=== PATIENT | female | born 1975 | race Caucasian/White ===

== ENCOUNTER 2021-01-17 17:38 | Emergency (ER) | payer MEDICAID ==
[~2021-01-17] VITALS: Ht 162.6 cm; Wt 77.0 kg
[~2021-01-17 17:38] MED LIST: NITR-65 PO; ONDA-42 SL; PNT40TEC PO
[2021-01-17 17:49] VITALS: BP 129/88
--- NOTE | 2021-01-17 17:57 | ED Upper Extremity ---
General Stated Complaint: L ARM HOT/RED Source: patient Exam Limitations: no limitations (HARRIS SHIPLEY APRN) History of Present Illness Date Seen by Provider: Jan 17, 2021 Time Seen by Provider: 17:55 Initial Comments To ER with some redness swelling and burning sensation to the left arm. This began yesterday while at work. 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 She thinks maybe a bee stung her but she did not see a bee. She has some induration and erythema just above the antecubital fossa on the left forearm. No fevers or chills. Onset: just prior to arrival Severity: moderate Pain/Injury Location: left elbow Modifying Factors: Worse With Movement (HARRIS SHIPLEY APRN) Allergies and Home Medications Allergies Coded Allergies: No Known Drug Allergies (Unverified , 06/25/13) Patient Home Medication List Home Medication List Reviewed: Yes (HARRIS SHIPLEY APRN) Clindamycin HCl (Clindamycin HCl) 300 Mg Capsule, 300 MG PO TID Prescribed by: HARRIS SHIPLEY on 01/17/211807 Nitrofurantoin/Nitrofuran Mac (Macrobid) 100 Mg Capsule, 1 EACH PO BID Prescribed by: KECIA HILL on 06/25/131920 Ondansetron Hcl (Zofran Oral Dissolve) 4 Mg Tab, 4 MG SL Q4H Prescribed by: KECIA HILL on 06/25/131920 Pantoprazole Sodium (Protonix) 40 Mg Tablet.dr, 1 TAB PO DAILY Prescribed by: KECIA HILL on 06/25/131920 Prednisone (Prednisone) 20 Mg Tab, 40 MG PO DAILY Prescribed by: HARRIS SHIPLEY on 01/17/211807 Review of Systems Constitutional: see HPI EENTM: see HPI Respiratory: no symptoms reported Cardiovascular: no symptoms reported Genitourinary: no symptoms reported Musculoskeletal: see HPI Skin: no symptoms reported Psychiatric/Neurological: No Symptoms Reported (HARRIS SHIPLEY APRN) Physical Exam Vital Signs Vital Signs - First Documented 01/17/21 17:49 Temp 36.6 Pulse 117 Resp 18 B/P (MAP) 129/88 (102) Pulse Ox 100 O2 Delivery Room Air (MARGARET RODRÍGUEZ MD) Vital Signs Capillary Refill : (HARRIS SHIPLEY APRN) Height, Weight, BMI Height: 5'4" Weight: 160lbs. oz. 72.038456tk; BMI Method: General Appearance: WD/WN, no apparent distress HEENT: PERRL/EOMI, normal ENT inspection Neck: non-tender, full range of motion Respiratory: no respiratory distress, no accessory muscle use Shoulder: normal inspection, non-tender Elbow/Forearm: Left (Just above the left antecubital fossa is a half dollar sized area of induration and swelling surrounded by about 10cm of erythema without induration.) Wrist: Yes normal inspection, Yes non-tender Hand: normal inspection, non-tender Neurologic/Psychiatric: alert, normal mood/affect, oriented x 3 Skin: normal color, warm/dry (HARRIS SHIPLEY APRN) Progress/Results/Core Measures Results/Orders Medications Given in ED Current Medications Medications Dose Ordered Sig/Dixie Route Start Time Stop Time Status Last Admin Dose Admin Prednisone 40 mg ONCE ONCE PO 01/17/21 18:15 01/17/21 18:16 DC 01/17/21 18:16 40 MG (MARGARET RODRÍGUEZ MD) Vital Signs/I&O 01/17/21 17:49 Temp 36.6 Pulse 117 Resp 18 B/P (MAP) 129/88 (102) Pulse Ox 100 O2 Delivery Room Air (MARGARET RODRÍGUEZ MD) Departure Communication (Admissions) Bedside ultrasound reveals no fluid collection or abscess though there is some cobblestoning of the tissues just beneath the area of induration. We will go ahead and give an injection of clindamycin and then oral clindamycin for a few days as well as prednisone. She states that several individuals at her work have been stung by bees though she does not recall being stung. (HARRIS SHIPLEY APRN) Impression Primary Impression: Cellulitis of left arm Disposition: 01 HOME, SELF-CARE Condition: Stable Departure-Patient Inst. Decision time for Depature: 18:06 (HARRIS SHIPLEY APRN) Referrals: [facility] (PCP/Family) Primary Care Physician Patient Instructions: Cellulitis (Skin Infection), Adult (DC) Add. Discharge Instructions: 1. Expect about 48 hours before improvement. Return to ER for any worsening such as fevers or significantly increasing redness. Scripts Prednisone (Prednisone) 20 Mg Tab 40 MG PO DAILY, #6 TAB 0 Refills Prov: HARRIS SHIPLEY APRN 01/17/21 Clindamycin HCl (Clindamycin HCl) 300 Mg Capsule 300 MG PO TID, #21 CAP Prov: HARRIS SHIPLEY APRN 01/17/21 ATTENDING PHYSICIAN NOTE: I was physically present as attending physician in the emergency department during the care of this patient, but I was not directly involved in the decision making or delivery of care for this patient. (MARGARET RODRÍGUEZ MD) HARRIS SHIPLEY APRN Jan 17, 2021 17:57 MARGARET RODRÍGUEZ MD Jan 17, 2021 18:56
[2021-01-17] MEDS ORDERED: CLIN300C12 PO (18:08)
[2021-01-17] MEDS ORDERED: PRD20T PO (18:08)
[2021-01-17] MEDS ORDERED: CLINDAMYCIN 300 MG/2ML (CLEOCIN) VIAL IM SCH (18:15)
[2021-01-17] MEDS ORDERED: predniSONE 20 MG TAB PO ONE (18:15)
== END 2021-01-17 18:35 | disposition home or self-care (01) ==
LOC: EDUNIT# 17:38 → ER 17:40
DX: L03.114 Cellulitis of left upper limb (principal)
CPT/HCPCS: 99284

== ENCOUNTER 2022-01-27 01:36 | Emergency (ER) | payer MEDICAID ==
[~2022-01-27] VITALS: Ht 163 cm; Wt 77.0 kg
[~2022-01-27 01:36] MED LIST changes: +CLIN-144 PO; +PRD20T PO
[2022-01-27 01:48] VITALS: BP 130/81
[2022-01-27] MEDS ORDERED: SULF1TAB38 PO (01:58)
[2022-01-27] MEDS ORDERED: MUPI22OI2 TP (01:58)
--- NOTE | 2022-01-27 01:58 | ED Integumentary General ---
General Chief Complaint: Skin/Wound Problems Stated Complaint: RT ARM ABSCESS-PAINFUL Nursing Triage Note: Pt presents with abscess to R forearm. She reports hx of MRSA. States she got a splinter 4 days ago and now entire arm is swollen Source: patient Exam Limitations: no limitations History of Present Illness Date Seen by Provider: Jan 27, 2022 Time Seen by Provider: 01:45 Initial Comments Patient is a 46-year-old female with history of MRSA who presents with cellulitis and deroofed abscess to ulnar aspect of her right forearm. Patient states she had a splinter days ago that she is and that the area is now red swollen and tender. She denies fever chills nausea vomiting or sweats. No medications or therapies prior to arrival. Timing/Duration: changing over time Severity: mild Location: extremities Possible Cause: other Modifying Factors: improves with other Associated Symptoms: other Allergies and Home Medications Allergies Coded Allergies: No Known Drug Allergies (Unverified , 06/25/13) Patient Home Medication List Home Medication List Reviewed: Yes Clindamycin HCl (Clindamycin HCl) 300 Mg Capsule, 300 MG PO TID Prescribed by: HARRIS SHIPLEY on 01/17/211807 Nitrofurantoin/Nitrofuran Mac (Macrobid) 100 Mg Capsule, 1 EACH PO BID Prescribed by: KECIA HILL on 06/25/131920 Ondansetron Hcl (Zofran Oral Dissolve) 4 Mg Tab, 4 MG SL Q4H Prescribed by: KECIA HILL on 06/25/131920 Pantoprazole Sodium (Protonix) 40 Mg Tablet.dr, 1 TAB PO DAILY Prescribed by: KECIA HILL on 06/25/131920 Prednisone (Prednisone) 20 Mg Tab, 40 MG PO DAILY Prescribed by: HARRIS SHIPLEY on 01/17/211807 Review of Systems Review of Systems Constitutional: see HPI Skin: see HPI Past Jleijko-Mlhaec-Xyvgta Hx Patient Social History Tobacco Use?: No Past Medical History Surgery/Hospitalization HX: SX: R KNEE SCOPE, BLADDER TIED, HYSTERECTOMY Physical Exam Vital Signs Capillary Refill : Less Than 3 Seconds General Appearance: WD/WN, no apparent distress Cardiovascular: regular rate, rhythm Respiratory: lungs clear Neurologic/Psychiatric: alert, normal mood/affect, oriented x 3 Skin: other (Deroofed abscess with small patch of cellulitis over ulnar aspect of right forearm. No fluctuance or active drainage. No identified foreign body.) Progress/Results/Core Measures Results/Orders Blood Pressure Mean: 97 Departure Communication (Admissions) Deroofed abscess with small patch of cellulitis. Pain addressed, wound bandaged. First dose of antibiotics given. Recommendations are continued therapeutic supportive care with PCP follow-up. Return precautions reviewed. Patient verbalizes understanding and agreement discharge instructions prior to departure Impression Primary Impression: Abscess Additional Impression: Cellulitis Disposition: HOME, SELF-CARE Condition: Stable Departure-Patient Inst. Decision time for Depature: 01:56 Referrals: [facility] (PCP/Family) Primary Care Physician Patient Instructions: Boil Add. Discharge Instructions: Please keep cellulitis covered and take newly prescribed medications as directed. May take ibuprofen OTC for pain. Follow-up with your PCP in for reevaluation 2 to 3 days for reevaluation. Return to the ED if new or worsening symptoms. All discharge instructions reviewed with patient and/or family. Voiced understanding. Scripts Mupirocin (Mupirocin) 2 % Oint...g. 22 GM TP TID, #1 EA Prov: AGGIE MONTANO DO 01/27/22 Sulfamethoxazole/Trimethoprim (Bactrim Ds Tablet) 1 Each Tablet 1 EACH PO BID for 20 Days, TAB Prov: AGGIE MONTANO DO 01/27/22 AGGIE MONTANO DO Jan 27, 2022 01:58
[2022-01-27] MEDS ORDERED: IBUPROFEN 600 MG (MOTRIN) TAB PO ONE (02:00)
[2022-01-27] MEDS ORDERED: TRIM/SULFAMETH 160/800 (SEPTRA DS) TAB PO ONE (02:00)
== END 2022-01-27 02:12 | disposition home or self-care (01) ==
LOC: EDUNIT# 01:36 → ER 01:40
DX: L03.113 Cellulitis of right upper limb (principal); L02.413 Cutaneous abscess of right upper limb; Z28.310 Unvaccinated for COVID-19
CPT/HCPCS: 99283

== ENCOUNTER 2022-02-14 22:30 | Emergency (ER) | payer MEDICAID ==
[~2022-02-14 22:30] MED LIST changes: +MUPI22OI2 TP; +SULF1TAB38 PO
[2022-02-15] MEDS ORDERED: TRIM/SULFAMETH 160/800 (SEPTRA DS) TAB PO ONE (00:30)
[2022-02-15] MEDS ORDERED: TETANUS,DIPTH,PERTUSS P/F (BOOSTRIX) 0.5 ML VIAL IM ONE (00:30)
[2022-02-15] MEDS ORDERED: SULF1TAB38 PO (00:32)
--- NOTE | 2022-02-15 00:32 | ED Upper Extremity ---
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; PT ADVISES THAT APPROX 3 WKS AGO SHE NOTICED A SMALL WOUND FORMING IN HER L AC; PT WAS SEEN AT ER AND GIVEN BACTRIM; PT ADVISES THAT SHE FINISHED THE COURSE OF ANTIBIOTICS BUT CONTINUES TO HAVE THE WOUND; PT ATTEMPTED TO PETER THE WOUND HERSELF TONIGHT AND REPORTS THAT SHE WAS ABLE TO GET SOME SANGUINEOUS AND SEROSANGUINEOUS DRAINAGE; PT IS CONERNED THAT INFECTION IS STILL PRESENT Source: patient Exam Limitations: no limitations History of Present Illness Date Seen by Provider: Feb 15, 2022 Time Seen by Provider: 00:10 Initial Comments This 46-year-old woman presents to the emergency room with sudden ulcerative type lesion in her left antecubital fossa. She was seen on January 27 for what appeared to be a deroofed abscess. She was placed on antibiotics at that time. Patient reports that the lesions seem to worsen. She attempted to open it by poking it with a needle earlier today. She states that it split open and there was a copious amount of blood. The area now appears to be a cratered wound with scab forming within it. There is some indurated fullness beneath it. She has had no fevers. Allergies and Home Medications Allergies Coded Allergies: No Known Drug Allergies (Unverified , 06/25/13) Patient Home Medication List Home Medication List Reviewed: Yes Clindamycin HCl (Clindamycin HCl) 300 Mg Capsule, 300 MG PO TID Prescribed by: HARRIS SHIPLEY on 01/17/21 180 Mupirocin (Mupirocin) 2 % Oint...g., 22 GM TP TID Prescribed by: AGGIE MONTANO on 01/27/22 0158 Nitrofurantoin/Nitrofuran Mac (Macrobid) 100 Mg Capsule, 1 EACH PO BID Prescribed by: KECIA HILL on 06/25/131920 Ondansetron Hcl (Zofran Oral Dissolve) 4 Mg Tab, 4 MG SL Q4H Prescribed by: KECIA HILL on 06/25/131920 Pantoprazole Sodium (Protonix) 40 Mg Tablet.dr, 1 TAB PO DAILY Prescribed by: KECIA HILL on 06/25/131920 Prednisone (Prednisone) 20 Mg Tab, 40 MG PO DAILY Prescribed by: HARRIS SHIPLEY on 01/17/21 180 Sulfamethoxazole/Trimethoprim (Bactrim Ds Tablet) 1 Each Tablet, 1 EACH PO BID Prescribed by: AGGIE MONTANO on 01/27/22 0158 Sulfamethoxazole/Trimethoprim (Bactrim Ds Tablet) 1 Each Tablet, 1 EACH PO BID Prescribed by: MARGARET MIKE on 02/15/22 0032 Review of Systems Constitutional: no symptoms reported; No fever EENTM: no symptoms reported Respiratory: no symptoms reported Cardiovascular: no symptoms reported Gastrointestinal: no symptoms reported Genitourinary: no symptoms reported : No Musculoskeletal: no symptoms reported Skin: see HPI Psychiatric/Neurological: No Symptoms Reported Past Aihgeij-Cvsjsa-Zynrdb Hx Patient Social History Tobacco Use?: Yes Tobacco type used: Cigarettes Smoking Status: Current Everyday Smoker Use of E-Cig and/or Vaping dev: No Substance use?: No Alcohol Use?: Yes Alcohol type: Beer, Hard Liquor, Wine Alcohol Frequency: Rarely Pt feels they are or have been: Yes Immunizations Up To Date Influenza Vaccine Up-to-Date: No; Not Current Past Medical History Surgery/Hospitalization HX: SX: R KNEE SCOPE, BLADDER TIED, HYSTERECTOMY Surgeries: Yes Bladder Surgery, Hysterectomy, Orthopedic Respiratory: No Cardiac: No Neurological: No : No Genitourinary: No Gastrointestinal: No Musculoskeletal: No Endocrine: Yes Hypothyroidsim, Diabetes, Non-Insulin dep HEENT: No Cancer: No Psychosocial: Yes Depression Physical Exam Vital Signs Vital Signs - First Documented 02/14/22 22:42 Temp 36.9 Pulse 99 Resp 14 B/P (MAP) 126/80 (95) Pulse Ox 100 Capillary Refill : Less Than 3 Seconds Height, Weight, BMI Height: 5'4" Weight: 160lbs. oz. 72.385427tr; 28.00 BMI Method: General Appearance: WD/WN HEENT: normal ENT inspection Neck: normal inspection Cardiovascular: regular rate, rhythm, no edema, no murmur Respiratory: lungs clear, normal breath sounds, no respiratory distress Elbow/Forearm: Left (Slightly cratered sore or lesion in the left antecubital fossa. There appears to be scab forming within it. There is some indurated fullness beneath it.) Hand: normal inspection, no evidence of injury Neurologic/Tendon: normal sensation, normal motor functions, normal tendon functions Neurologic/Psychiatric: no motor/sensory deficits, alert, normal mood/affect, oriented x 3 Skin: normal color, warm/dry, other (See above) Progress/Results/Core Measures Results/Orders My Orders Orders - MARGARET RODRÍGUEZ MD Ekg Tracing (02/14/22 22:35) Dipht,Pertuss(Acell),Tet Adult (Boostrix (02/15/22 00:30) Sulfamethoxazole/Trimet Ds Tab (Bactrim (02/15/22 00:30) Medications Given in ED Current Medications Medications Dose Ordered Sig/Dixie Route Start Time Stop Time Status Last Admin Dose Admin Diphtheria/ Tetanus/Acell Pertussis 0.5 ml ONCE ONCE IM 02/15/22 00:30 02/15/22 00:32 DC 02/15/22 00:40 0.5 ML Trimethoprim/ Sulfamethoxazole 1 ea ONCE ONCE PO 02/15/22 00:30 02/15/22 00:32 DC 02/15/22 00:39 1 EA Vital Signs/I&O 02/14/22 02/15/22 22:42 00:44 Temp 36.9 Pulse 99 87 Resp 14 16 B/P (MAP) 126/80 (95) 118/79 Pulse Ox 100 100 Blood Pressure Mean: 95 Progress Progress Note : Progress Note Bedside ultrasound revealed no drainable fluid collection. There was some surrounding erythema and concerned about disruption of this sore with her manipulation with needle. 1 more week of antibiotics was prescribed. Patient did not believe she was up-to-date on her tetanus booster, so that was provided as well. Departure Impression Primary Impression: Abscess Disposition: 01 HOME, SELF-CARE Condition: Improved Departure-Patient Inst. Decision time for Depature: 00:30 Referrals: [facility] (PCP/Family) Primary Care Physician Patient Instructions: ABSCESS Add. Discharge Instructions: Keep the wound covered when active or in dirty environments until new skin closes over the wound. Complete antibiotics as prescribed. For future abscesses, do not attempt to open them on your own. Doing so may worsen infection and could damage underlying structures such as blood vessels, tendons, etc. Return to care if you have worsening symptoms despite following these instructions. All discharge instructions reviewed with patient and/or family. Voiced understanding. Scripts Sulfamethoxazole/Trimethoprim (Bactrim Ds Tablet) 1 Each Tablet 1 EACH PO BID, #14 TAB Prov: MARGARET RODRÍGUEZ MD 02/15/22 MARGARET RODRÍGUEZ MD Feb 15, 2022 00:32
[2022-02-15 00:44] VITALS: BP 118/79
== END 2022-02-15 00:50 | disposition home or self-care (01) ==
LOC: EDUNIT# 22:30 → ER 22:31
DX: L02.414 Cutaneous abscess of left upper limb (principal); F17.210 Nicotine dependence, cigarettes, uncomplicated; Z23 Encounter for immunization; Z28.310 Unvaccinated for COVID-19
CPT/HCPCS: 90715; 99284

== ENCOUNTER 2022-11-29 20:22 | Emergency (ER) | payer MEDICAID ==
--- NOTE | 2022-11-29 20:44 | ED Fall/Injury ---
General Chief Complaint: Trauma-Non Activation Stated Complaint: FALL/MELECIO PAIN FOOT PAIN Source: patient Exam Limitations: no limitations History of Present Illness Date Seen by Provider: Nov 29, 2022 Time Seen by Provider: 20:27 Initial Comments 47-year-old female presents to the ER after a fall which occurred approximately 1 hour prior to arrival. She had recent spine surgery from L4/L5 to S1 for degenerative disc disease. She states she was walking with her walker and just suddenly fell, uncertain how she fell. She states that the pain in her back is the same as since her surgery, she is just concerned because she had the recent surgery. She is also complaining of pain in her left foot and her last 3 toes and just above her toes in the foot. She reports chronic bilateral hip numbness since the surgery, denies any change in this. She states she landed on her buttocks, was able to get up right away. She denies any numbness or tingling in her inner thighs or groin area, denies bowel or bladder incontinence. Patient was able to stand up from wheelchair and get into bed without assistance. The surgery was performed by Dr. Zheng at . Patient took her oxycodone prior to arrival. Allergies and Home Medications Allergies Coded Allergies: No Known Drug Allergies (Unverified , 06/25/13) Patient Home Medication List Home Medication List Reviewed: Yes Clindamycin HCl (Clindamycin HCl) 300 Mg Capsule, 300 MG PO TID Prescribed by: HARRIS SHIPLEY on 01/17/211807 Mupirocin (Mupirocin) 2 % Oint...g., 22 GM TP TID Prescribed by: AGGIE MONTANO on 01/27/22 0158 Nitrofurantoin/Nitrofuran Mac (Macrobid) 100 Mg Capsule, 1 EACH PO BID Prescribed by: KECIA HILL on 06/25/131920 Ondansetron Hcl (Zofran Oral Dissolve) 4 Mg Tab, 4 MG SL Q4H Prescribed by: KECIA HILL on 06/25/131920 Pantoprazole Sodium (Protonix) 40 Mg Tablet.dr, 1 TAB PO DAILY Prescribed by: KECIA HILL on 06/25/131920 Prednisone (Prednisone) 20 Mg Tab, 40 MG PO DAILY Prescribed by: HARRIS SHIPLEY on 10/16/21 1808 Sulfamethoxazole/Trimethoprim (Bactrim Ds Tablet) 1 Each Tablet, 1 EACH PO BID Prescribed by: AGGIE MONTANO on 01/27/22 0158 Sulfamethoxazole/Trimethoprim (Bactrim Ds Tablet) 1 Each Tablet, 1 EACH PO BID Prescribed by: MARGARET MIKE on 02/15/22 0032 Review of Systems Review of Systems Constitutional: see HPI Past Xgfzbxq-Fwqvjd-Bjvkpw Hx Patient Social History Tobacco Use?: Yes Tobacco type used: Cigarettes Substance use?: No Alcohol Use?: No Pt feels they are or have been: No Past Medical History Surgery/Hospitalization HX: SX: R KNEE SCOPE, BLADDER TIED, HYSTERECTOMY, ANTERIOR AND POSERIOR LUMBAR DECOMPRESSION AND FUSION Surgeries: Yes Bladder Surgery, Hysterectomy, Orthopedic Respiratory: No Cardiac: No Neurological: No Genitourinary: No Gastrointestinal: No Musculoskeletal: No Endocrine: Yes Hypothyroidsim, Diabetes, Non-Insulin dep HEENT: No Cancer: No Psychosocial: Yes Depression Physical Exam Vital Signs Vital Signs - First Documented 11/29/22 20:30 Temp 36.5 Pulse 90 Resp 14 B/P (MAP) 115/88 (97) Pulse Ox 100 O2 Delivery Room Air Capillary Refill : Height, Weight, BMI Height: 5'4" Weight: 160lbs. oz. 72.776814jd; 28.00 BMI Method: General Appearance: WD/WN, no apparent distress Neck: supple, normal inspection Cardiovascular: regular rate, rhythm Respiratory: lungs clear, normal breath sounds, no respiratory distress, no accessory muscle use Gastrointestinal: other (Dressing in place) Back: vertebral tenderness, other (Dressing in place) Extremities: normal range of motion, normal inspection Neurologic/Psychiatric: alert, normal mood/affect Skin: normal color, warm/dry Progress/Results/Core Measures Results/Orders My Orders Orders - GORDO MILAN APRN Ct Lumbar Spine Wo (11/29/22 20:38) Sacrum And Coccyx (11/29/22 20:38) Foot, Left, 3 Views (11/29/22 20:38) Vital Signs/I&O 11/29/22 20:30 Temp 36.5 Pulse 90 Resp 14 B/P (MAP) 115/88 (97) Pulse Ox 100 O2 Delivery Room Air Progress Progress Note : Progress Note Patient seen and evaluated, lying in bed, mild distress. Based on exam and symptoms, CT of lumbar spine ordered. X-ray of sacrum and coccyx and left foot ordered. 2135 imaging reviewed. Foot x-ray negative for fracture. Sacrum and coccyx x- ray shows no acute fracture, shows traumatic fusion of the lumbosacral spine. CT of the lumbar spine shows no lumbar spine fracture, instrumented posterior fusion and hardware appears intact on my interpretation. Facet joints are normal, disc heights are normal, no spinal canal stenosis. Results discussed with patient. Patient instructed to call Dr. Zheng tomorrow to let him know what happened. Discharge instructions and return precautions provided. Diagnostic Imaging Diagonstic Imaging: Xray Plain Films/CT/US/NM/MRI: other (foot) Comments [facility] [place] NAME: NATALIE ANDREA [facility] REC#: [id number] PT STATUS: REG ER : 1975 PHYSICIAN: GORDO MILAN APRN ADMIT DATE: 11/29/22/ER Draft Date of Exam:11/29/22 FOOT, LEFT, 3 VIEWS EXAMINATION: Left foot 3 views HISTORY: foot pain COMPARISON: None available. FINDINGS: Alignment is normal. No fracture is seen. Joint spaces are normal. IMPRESSION: 1. No fracture. Dictated on workstation # [id number] Dict: 11/29/222110 Trans: 11/29/222113 [facility] [id number] Interpreted by: ARELI MOLINA MD Electronically signed by: Diagonstic Imaging: Xray Plain Films/CT/US/NM/MRI: other (sacrum/coccyx) Comments [facility] [place] [place] NAME: NATALIE ANDREA [facility] REC#: [id number] PT STATUS: REG ER : 1975 PHYSICIAN: GORDO MILAN APRN ADMIT DATE: 11/29/22/ER Signed Date of Exam:11/29/22 SACRUM AND COCCYX ExamINATION: Sacrum and coccyx, two views. HISTORY: Back injury COMPARISON: None available. FINDINGS: There is an instrumented fusion of the lumbosacral spine. No fracture is seen. No dislocation. IMPRESSION: 1. No fracture in the sacrum or coccyx. Dictated by: Dictated on workstation # [id number] Dict: 11/29/222102 Trans: 11/29/222111 [facility] [id number] Interpreted by: ARELI MOLINA MD Electronically signed by: ARELI MOLINA MD 11/29/222111 Diagonstic Imaging: CT Plain Films/CT/US/NM/MRI: other (lumbar spine) Comments [facility] [place] NAME: NATALIE ANDREA [facility] REC#: [id number] PT STATUS: REG ER : 1975 PHYSICIAN: GORDO MILAN APRN ADMIT DATE: 11/29/22/ER Draft Date of Exam:11/29/22 CT LUMBAR SPINE WO EXAMINATION: CT lumbar spine without contrast. TECHNIQUE: Multiple contiguous axial images were obtained through the lumbar spine without the use of intravenous contrast. Sagittal and coronal reformations were then performed. All CT scans use one or more of the following dose optimizing techniques: automated exposure control, MA and/or KvP adjustment based on patient size and exam type or iterative reconstruction. HISTORY: Back injury COMPARISON: None available. FINDINGS: The alignment of the lumbar spine is normal. There has been an instrumented posterior fusion of L4-S1 with anterior fusion of L4-L5 and L5-S1. Facet joints are normal. Disk heights are normal. There is no spinal canal stenosis. Limited views of the abdomen and pelvis show no soft tissue abnormality. The aorta is normal. IMPRESSION: 1. No lumbar spine fracture. Dictated on workstation # [id number] Dict: 11/29/222123 Trans: 11/29/222129 [facility] [id number] Interpreted by: ARELI MOLINA MD Electronically signed by: Departure Impression Primary Impression: Fall Additional Impressions: Back pain Foot pain Disposition: 01 HOME, SELF-CARE Condition: Stable Departure-Patient Inst. Decision time for Depature: 21:39 Referrals: [facility] (PCP/Family) Primary Care Physician Patient Instructions: Preventing Falls ED Add. Discharge Instructions: Call Dr. Zheng in the morning to let him know what happened. Be careful when walking to avoid falls. Return if you have numbness or tingling in your right or inner thigh area, bowel or bladder incontinence, if you are unable to walk, or any other new, concerning, or worsening symptoms. All discharge instructions reviewed with patient and/or family. Voiced understanding. GORDO MILAN APRN Nov 29, 2022 20:44
--- NOTE | 2022-11-29 21:06 | Diagnostic Imaging Report ---
ExamINATION: Sacrum and coccyx, two views. HISTORY: Back injury COMPARISON: None available. FINDINGS: There is an instrumented fusion of the lumbosacral spine. No fracture is seen. No dislocation. IMPRESSION: 1. No fracture in the sacrum or coccyx. Dictated by: Dictated on workstation # [id number]
--- NOTE | 2022-11-29 21:14 | Diagnostic Imaging Report ---
EXAMINATION: Left foot 3 views HISTORY: foot pain COMPARISON: None available. FINDINGS: Alignment is normal. No fracture is seen. Joint spaces are normal. IMPRESSION: 1. No fracture. Dictated by: Dictated on workstation # [id number]
--- NOTE | 2022-11-29 21:31 | Diagnostic Imaging Report ---
EXAMINATION: CT lumbar spine without contrast. TECHNIQUE: Multiple contiguous axial images were obtained through the lumbar spine without the use of intravenous contrast. Sagittal and coronal reformations were then performed. All CT scans use one or more of the following dose optimizing techniques: automated exposure control, MA and/or KvP adjustment based on patient size and exam type or iterative reconstruction. HISTORY: Back injury COMPARISON: None available. FINDINGS: The alignment of the lumbar spine is normal. There has been an instrumented posterior fusion of L4-S1 with anterior fusion of L4-L5 and L5-S1. Facet joints are normal. Disk heights are normal. There is no spinal canal stenosis. Limited views of the abdomen and pelvis show no soft tissue abnormality. The aorta is normal. IMPRESSION: 1. No lumbar spine fracture. Dictated by: Dictated on workstation # [id number]
[2022-11-29 21:46] VITALS: BP 117/86
== END 2022-11-29 21:47 | disposition home or self-care (01) ==
LOC: EDUNIT# 20:22 → ER 20:25
DX: M54.50 Low back pain, unspecified (principal); M79.671 Pain in right foot; F17.210 Nicotine dependence, cigarettes, uncomplicated; Z98.890 Other specified postprocedural states; W18.30XA Fall on same level, unspecified, initial encounter; Y93.01 Activity, walking, marching and hiking
CPT/HCPCS: 72131; 72220; 73630

== ENCOUNTER → 2023-02-10 | Outpatient (CLI) | payer MEDICAID ==
[~2023-02-10] MED LIST changes: +AMOX1TAB12 PO; +SULF-221 PO
--- NOTE | 2023-02-10 11:51 | Diagnostic Imaging Report ---
EXAM: Ultrasound of the right breast, limited. INDICATION: Right breast lump. By history, the patient has a palpable abnormality in the medial retroareolar region of the right breast. The diagnostic mammogram performed prior to this study failed to show any sign of malignancy in this area. On this exam however there is a small 7 x 3 x 5 mm slightly irregular essentially anechoic lesion in the 1 o'clock position of the retroareolar region. There is little through transmission but I do suspect that this is a benign process such as a cyst or perhaps a sebaceous cyst. As there are no prior exams available for comparison, it may prove worthwhile to have a short-term (6 month) follow-up ultrasound exam for further study. There is no other abnormality identified. IMPRESSION: There is a small benign-appearing cystic mass in the area of the patient's palpable abnormality. Recommendations as above. ACR BI-RADS Category 3: Probably benign findings. Result letter will be mailed to the patient. Note: At least 10% of breast cancer is not imaged by mammography. Dictated by: Dictated on workstation # [id number]
--- NOTE | 2023-02-10 17:48 | Diagnostic Imaging Report ---
3-D bilateral screening mammogram with CAD. INDICATION: Right breast lump This is the patient's baseline study. At this time she complains of a palpable abnormality in the 1 o'clock position of the retroareolar region of the right breast. A marker was placed in the area of concern. There is no primary or secondary sign of malignancy evident in this area however. Even so, I would recommend that ultrasound be performed for further study. The fibroglandular tissue in both breasts is heterogeneously dense. This does limit the sensitivity of this exam. There is no primary or secondary sign of malignancy noted. IMPRESSION: There is no evidence of malignancy. In particular, there is no abnormality to correspond with the patient's palpable mass in the right breast. Ultrasound would be recommended for further study however. ACR BI-RADS Category 0: Incomplete. (Needs additional imaging evaluation). Result letter will be mailed to the patient. Note: At least 10% of breast cancer is not imaged by mammography. Dictated by: Dictated on workstation # [id number]
== END ==
LOC: RAD 08:35
PROVIDERS: ATTEND Nurse Practitioner
DX: N60.01 Solitary cyst of right breast (principal)
CPT/HCPCS: 76642; 77066; G0279; 77062

== ENCOUNTER 2023-02-12 18:55 | Emergency (ER) | payer MEDICAID ==
[~2023-02-12] VITALS: Ht 165.1 cm; Wt 86.0 kg
[~2023-02-12 18:55] MED LIST changes: -AMOX1TAB12 PO; -SULF-221 PO
[2023-02-12] MEDS ORDERED: AMOXICILLIN/Clavulanate 875 MG TABLET PO STA (19:49)
--- NOTE | 2023-02-12 19:54 | ED Upper Extremity ---
General Chief Complaint: Upper Extremity Stated Complaint: PAIN IN RIGHT WRIST Nursing Triage Note: C/O RIGHT WRIST AND HAND PAIN, SWELLING AND NUMBNESS WITH TINGLING. INJURED LAST NIGHT WHEN AT HOME BY ITTING IT ON HER KITCHEN COUNTER. Source: patient Exam Limitations: no limitations (LYNN CARMONA) History of Present Illness Date Seen by Provider: Feb 12, 2023 Time Seen by Provider: 19:51 Initial Comments Patient is a 47-year-old female presents ED with right wrist and hand pain swelling numbness and tingling. She injured her right wrist while hitting it on the kitchen counter. She did noted a small abrasion there. Unclear if this was by her dog or the counter. She did have some pain and swelling but the swelling and pain increased last night and today. She noted some redness and swelling of the hand. She has a history of MRSA. Patient states she is up-to-date on her tetanus. Has been taking anti-inflammatories. She denies any drug use or alcohol use, heart disease, COPD or asthma. Patient denies fever, chills, body aches, chest pain or shortness of breath. (LYNN CARMONA) Allergies and Home Medications Allergies Coded Allergies: No Known Drug Allergies (Unverified , 02/12/23) Patient Home Medication List Home Medication List Reviewed: Yes (LYNN CARMONA) Clindamycin HCl (Clindamycin HCl) 300 Mg Capsule, 300 MG PO TID Prescribed by: HARRIS SHIPLEY on 01/17/211807 Clindamycin HCl (Clindamycin HCl) 300 Mg Capsule, 300 MG PO QID Prescribed by: CHEMA SHERMAN on 02/12/232034 Mupirocin (Mupirocin) 2 % Oint...g., 22 GM TP TID Prescribed by: AGGIE MONTANO on 01/27/22 0158 Nitrofurantoin/Nitrofuran Mac (Macrobid) 100 Mg Capsule, 1 EACH PO BID Prescribed by: KECIA HILL on 06/25/131920 Ondansetron Hcl (Zofran Oral Dissolve) 4 Mg Tab, 4 MG SL Q4H Prescribed by: KECIA HILL on 06/25/131920 Pantoprazole Sodium (Protonix) 40 Mg Tablet.dr, 1 TAB PO DAILY Prescribed by: KECIA HILL on 06/25/131920 Prednisone (Prednisone) 20 Mg Tab, 40 MG PO DAILY Prescribed by: HARRIS SHIPLEY on 01/17/211807 Sulfamethoxazole/Trimethoprim (Bactrim Ds Tablet) 1 Each Tablet, 1 EACH PO BID Prescribed by: AGGIE MONTANO on 01/27/22 0158 Sulfamethoxazole/Trimethoprim (Bactrim Ds Tablet) 1 Each Tablet, 1 EACH PO BID Prescribed by: MARGARET MIKE on 02/15/22 0032 Sulfamethoxazole/Trimethoprim (Bactrim Ds Tablet) 800 Mg-160 Mg Tablet, 1 EACH PO BID Prescribed by: CHEMA SHERMAN on 02/12/232033 Review of Systems Constitutional: No diaphoresis, No fever, No malaise, No weakness EENTM: No ear pain, No blurred vision, No double vision Respiratory: No cough, No dyspnea on exertion Cardiovascular: No chest pain Gastrointestinal: No abdominal pain, No diarrhea, No nausea, No vomiting Genitourinary: No decreased output, No discharge Musculoskeletal: No back pain; joint pain, joint swelling, muscle pain Skin: change in color (LYNN CARMONA) All Other Systems Reviewed Negative Unless Noted: Yes (LYNN CARMONA) Past Vqcrkuy-Ugpaer-Xlyrsd Hx Patient Social History Tobacco Use?: Yes Tobacco type used: Cigarettes Smoking Status: Current Everyday Smoker Use of E-Cig and/or Vaping dev: No Substance use?: No Alcohol Use?: No (LYNN CARMONA) Immunizations Up To Date First/Initial COVID19 Vaccinat: DENIES (LYNN CARMONA) Past Medical History Surgery/Hospitalization HX: SX: R KNEE SCOPE, BLADDER TIED, HYSTERECTOMY, ANTERIOR AND POSERIOR LUMBAR DECOMPRESSION AND FUSION, MRSA Surgeries: Yes Bladder Surgery, Hysterectomy, Orthopedic Respiratory: No Cardiac: No Neurological: No Genitourinary: No Gastrointestinal: No Musculoskeletal: No Endocrine: Yes Hypothyroidsim, Diabetes, Non-Insulin dep HEENT: No Cancer: No Psychosocial: Yes Depression (LYNN CARMONA) Physical Exam Vital Signs Vital Signs - First Documented 02/12/23 19:15 Temp 37.0 Pulse 107 Resp 18 B/P (MAP) 118/69 (85) Pulse Ox 100 O2 Delivery Room Air (MARGARET RODRÍGUEZ MD) Vital Signs Capillary Refill : Less Than 3 Seconds (LYNN CARMONA) Height, Weight, BMI Height: 5'4" Weight: 160lbs. oz. 72.339305yz; 31.00 BMI Method: General Appearance: WD/WN, no apparent distress HEENT: PERRL/EOMI, normal ENT inspection, TMs normal, pharynx normal Neck: non-tender, full range of motion, supple Cardiovascular: regular rate, rhythm, no edema, no gallop, no JVD Respiratory: chest non-tender, lungs clear, normal breath sounds, no respiratory distress, no accessory muscle use Gastrointestinal: normal bowel sounds, non tender, soft, no organomegaly Back: normal inspection, no CVA tenderness Shoulder: normal inspection, non-tender Elbow/Forearm: normal inspection, non-tender, normal ROM, Right Wrist: Yes pain (Tenderness to palpate right distal ulna. Small superficial abrasion. Erythema and warmth noted of the right dorsum wrist and dorsum hand. [employer] Hand strength 5-5. Neurovascular intact. 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-XII nml as tested, no motor/sensory deficits, alert, normal mood/affect, oriented x 3 Skin: other (Soft tissue swelling, erythema warmth noted to the right dorsum hand and right lateral dorsum wrist.) (LYNN CARMONA) Progress/Results/Core Measures Results/Orders Medications Given in ED Current Medications Medications Dose Ordered Sig/Dixie Route Start Time Stop Time Status Last Admin Dose Admin Trimethoprim/ Sulfamethoxazole 1 ea ONCE ONCE PO 02/12/23 20:00 02/12/23 20:01 DC 02/12/23 20:11 1 EA (MARGARET RODRÍGUEZ MD) Vital Signs/I&O 02/12/23 02/12/23 19:15 20:37 Temp 37.0 37.0 Pulse 107 99 Resp 18 16 B/P (MAP) 118/69 (85) 120/70 Pulse Ox 100 100 O2 Delivery Room Air Room Air (MARGARET RODRÍGUEZ MD) Blood Pressure Mean: 85 Departure Communication (PCP) Patient presents to ED with swelling redness and pain to her right hand and wrist. She states she hit her hand against a countertop yesterday evening and started to develop pain and swelling. She does have a superficial abrasion. She was playing with her dog and unsure if he scratched her. She is up-to-date on her tetanus. She does have adequate range of motion of the wrist and hand. She is neurovascular intact. Notable swelling and some erythema. No fluctuant mass. She does not appear toxic. Did initially give her Augmentin to cover dog bites as well as Bactrim. History of staph infections requiring multiple antibiotics. Did obtain an x-ray of the right wrist as she had tenderness to the ulnar styloid which did not show any fracture. No snuffbox tenderness. No erosion. Soft tissue swelling noted. Swelling and redness became worse today. She states she has a history of abscesses that typically require multiple rounds of antibiotics. She agrees to proceed with oral antibiotics at this time. If swelling or redness get worse we will need to return for IV antibiotics. She acknowledges. Suggest follow-up your PCP in 2 days for reevaluation. At this time will discharge with clindamycin which would cover dog bites as well as Bactrim to cover MRSA. No fever, chills, weakness or body aches at this time. The area was marked. (LYNN CARMONA) Impression Primary Impression: Cellulitis Disposition: 01 HOME, SELF-CARE Condition: Stable Departure-Patient Inst. Decision time for Depature: 20:33 (LYNN CARMONA) Referrals: [facility] (PCP/Family) Primary Care Physician Patient Instructions: Cellulitis (Skin Infection), Adult (DC) Add. Discharge Instructions: Take antibiotics as prescribed. Anti-inflammatories for pain and swelling. If increased redness or swelling to return back to ED. All discharge instructions reviewed with patient and/or family. Voiced understanding. Scripts Clindamycin HCl (Clindamycin HCl) 300 Mg Capsule 300 MG PO QID for 7 Days, #28 CAP Prov: LYNN CARMONA 02/12/23 Sulfamethoxazole/Trimethoprim (Bactrim Ds Tablet) 800 Mg-160 Mg Tablet 1 EACH PO BID for 10 Days, #20 TAB Prov: LYNN CARMONA 02/12/23 ATTENDING PHYSICIAN NOTE: I was physically present as attending physician in the emergency department during the care of this patient, but I was not directly involved in the decision making or delivery of care for this patient. (MARGARET RODRÍGUEZ MD) LYNN CARMONA Feb 12, 2023 19:54 MARGARET RODRÍGUEZ MD Feb 13, 2023 06:36
[2023-02-12] MEDS ORDERED: Sulfamethoxazole/Trimethoprim DS TABLET PO ONE (20:00)
--- NOTE | 2023-02-12 20:28 | Diagnostic Imaging Report ---
HISTORY: Right distal ulna pain, injury. TECHNIQUE: 3 views of the right wrist. COMPARISON: None. FINDINGS: There is a left-sided label on the images, but the images appear to be of the right wrist and are titled as such. No acute fracture or dislocation is seen in the right wrist. Alignment appears normal. There is slight negative ulnar variance of about 2 mm. No erosion is seen. There is moderate soft tissue swelling at the dorsal medial aspect of the right forearm as well as the dorsal right hand. IMPRESSION: Soft tissue swelling of the right forearm, wrist and hand with no acute osseous abnormality seen. Dictated by: Dictated on workstation # [id number]
[2023-02-12] MEDS ORDERED: AMOX1TAB12 PO (20:34)
[2023-02-12] MEDS ORDERED: SULF-221 PO (20:34)
[2023-02-12] MEDS ORDERED: CLIN-144 PO (20:35)
[2023-02-12 20:37] VITALS: BP 120/70
== END 2023-02-12 20:38 | disposition home or self-care (01) ==
LOC: EDUNIT# 18:55 → ER 18:56
DX: L03.113 Cellulitis of right upper limb (principal); S60.811A Abrasion of right wrist, initial encounter; F17.210 Nicotine dependence, cigarettes, uncomplicated; W22.8XXA Striking against or struck by other objects, initial encounter; Y92.090 Kitchen in other non-institutional residence as the place of occurrence of the external cause
CPT/HCPCS: 73110